=== PATIENT | female | born 1950 | race Caucasian/White ===

== ENCOUNTER 2017-04-05 11:10 | Emergency (ER) | payer OTHER, BC ==
[2017-04-05] MEDS ORDERED: KETOROLAC TROMETHAMINE 60 MG/2 ML VIAL IM ONE (11:25)
--- NOTE | 2017-04-05 11:26 | PDOC ---
History of Present Illness - General Chief Complaint: Injury Stated Complaint: FELL, R SHOULDER, ARM, NECK PAIN Time Seen by Provider: 04/05/17 11:21 History Source: Patient Exam Limitations: No Limitations - History of Present Illness Initial Comments: 04/05/17 11:28 66 y/o female know diabetic presents to ER due to a fall in the bathtub this morning. Patient denies LOC. Denies headache, SOB, chest pain. States she felt the bathtub to be a little slippery and fell. Took one ADvil prior to arrival. Right shoulder pain with movement. No back pain or neck pain. Timing/Duration: 1 hour Severity: mild Past History - Past Medical History Allergies/Adverse Reactions: Allergies Allergy/AdvReac Type Severity Reaction Status Date / Time Penicillins Allergy Hives Verified 04/05/17 11:24 Home Medications: Ambulatory Orders Aspirin [ASA -] 81 mg PO DAILY #0 tab.chew 02/25/13 Insulin (Novolog 70/30) [Novolog Mix 70/30 Flexpen -] 10 units SQ BIDAC #0 pen 02/25/13 Levothyroxine [Synthroid -] 50 mcg PO DAILY@0700 #0 tablet 02/25/13 Rosuvastatin [Crestor -] 5 mg PO Q2D@2200 #0 tablet 02/25/13 Amlodipine Bes/Olmesartan Med [Janie 5-20 mg Tablet] 1 each PO DAILY 04/05/17 Ibuprofen [Advil -] 200 mg PO ONCE 04/05/17 Cancer: Yes (bladder) Diabetes: Yes GI Disorders: Yes (diverticulitis, PANCREATITIS X2) HTN: Yes Hypercholesterolemia: Yes Thyroid Disease: Yes (hypo) - Surgical History Abdominal Surgery: Yes (plasty, ruptured diaphram, hernia) Appendectomy: Yes Cholecystectomy: Yes - Suicide/Smoking/Psychosocial Hx Smoking Status: No Smoking History: Former smoker Have you smoked in the past 12 months: No Number of Cigarettes Smoked Daily: 0 If you are a former smoker, when did you quit?: 30 YRS AGO Hx Alcohol Use: No Substance Use Type: Alcohol Review of Systems - Review of Systems Able to Perform ROS?: Yes Is the patient limited Urdu proficient: No Constitutional: No: Chills, Fever Respiratory: No: Cough, Shortness of Breath Cardiac (ROS): No: Chest Pain ABD/GI: No: Nausea, Vomiting Musculoskeletal: Yes: Joint Pain. No: Back Pain, Neck Pain All Other Systems: Reviewed and Negative *Physical Exam - Physical Exam General Appearance: Yes: Nourished, Appropriately Dressed. No: Apparent Distress HEENT: positive: EOMI, SAHARA, Normal ENT Inspection, Normal Voice, Symmetrical, Pharynx Normal Neck: positive: Trachea midline, Normal Thyroid, Supple, Other (no spinous process tenderness to neck noted, full ROM). negative: Tender, Rigid, Carotid bruit Respiratory/Chest: positive: Lungs Clear, Normal Breath Sounds. negative: Chest Tender, Respiratory Distress Cardiovascular: positive: Regular Rhythm, Regular Rate, S1, S2. negative: Edema , JVD, Murmur Vascular Pulses: Femoral (R): 4+, Femoral (L): 4+, Carotid (R): 4+, Carotid (L) : 4+, Dorsalis-Pedis (R): 4+, Doralis-Pedis (L): 4+ Gastrointestinal/Abdominal: positive: Normal Bowel Sounds, Flat, Soft. negative : Tender, Organomegaly, Pulsatile Mass Lymphatic: negative: Adenopathy, Tenderness, Other Musculoskeletal: positive: Normal Inspection. negative: CVA Tenderness Extremity: positive: Normal Capillary Refill, Normal Inspection. negative: Normal Range of Motion (decreased ROM of right shoulder, no clavicle or scapular tenderness, pulses 2+/4 b/l in UE, no focal deficits noted, tenderness to right shoulder/humerus area, no deformity noted) Integumentary: positive: Normal Color, Dry, Warm. negative: Rash, Swelling, Ecchymosis, Bruising (d) Neurologic: positive: pack operator II-XII NML intact, Fully Oriented, Alert, Normal Mood/ Affect, Normal Response, Motor Strength 5/5 ED Treatment Course - ADDITIONAL ORDERS Additional order review: 04/05/17 11:30 Pt with right shoulder pain, will obtain x-ray to r/o fracture. 04/05/17 12:00 x-ray right shoulder and humerus: humeral head fracture, no dislocation noted Will place in sling, pt will follow up with Orthopedics Dr. Nice If worsen return to ER *DC/Admit/Observation/Transfer Diagnosis at time of Disposition: Fracture of humeral head, right, closed Qualifiers: Encounter type: initial encounter Qualified Code(s): S42.291A - Other displaced fracture of upper end of right humerus, initial encounter for closed fracture - Discharge Dispostion Disposition: HOME Condition at time of disposition: Good Admit: No - Referrals Referrals: Cosmo Mendez MD [Primary Care Provider] - Cosmo Nice MD [Staff Physician] - - Patient Instructions Printed Discharge Instructions: DI for Humeral Fracture Additional Instructions: Ice, Motrin, rest Sling Follow up with Orthopedics Dr. Nice If worsen return to ER - Post Discharge Activity
[2017-04-05 11:32] VITALS: BP 108/60; PULSE 77; TEMP 98.6; BMI 32.8
[2017-04-05] MEDS ORDERED: KETOROLAC TROMETHAMINE 60 MG/2 ML VIAL ONE (11:33)
== END 2017-04-05 12:09 | disposition home or self-care (01) ==
LOC: FER 11:10
PROC: 3E0233Z Introduction of Anti-inflammatory into Muscle, Percutaneous Approach (ICD-10-PCS; principal; 2017-04-05)
DX: S42.291A Other displaced fracture of upper end of right humerus, initial encounter for closed fracture (principal); W18.39XA Other fall on same level, initial encounter; Y93.89 Activity, other specified; Y92.9 Unspecified place or not applicable; E11.9 Type 2 diabetes mellitus without complications; Z85.51 Personal history of malignant neoplasm of bladder; I10 Essential (primary) hypertension; E78.00 Pure hypercholesterolemia, unspecified; E03.9 Hypothyroidism, unspecified; Z87.891 Personal history of nicotine dependence
CPT/HCPCS: 73030-TC-RT-FY; 73060-TC-RT-FY; 99282-25

== ENCOUNTER 2020-07-12 04:24 | Day surgery (SDC) | payer OTHER, BC ==
[2020-07-02 15:35] VITALS: BMI 29.8
[2020-07-12] MEDS ORDERED: LIDOCAINE HCL/PF 2% SDV 5ML VIAL ONE (08:39)
[2020-07-12] MEDS ORDERED: PROPOFOL 20 ML ONE ×2 (08:39→08:42)
[2020-07-12] MEDS ORDERED: MIDAZOLAM HCL 2 MG/2 ML SINGLE DOSE VIAL ONE ×2 (08:40→08:44)
[2020-07-12] MEDS ORDERED: LIDOCAINE HCL 1%, 10 MG/ML (20ML VIAL) ONE (09:10)
[2020-07-12] MEDS ORDERED: BUPIVACAINE HCL/PF 0.5% (5MG/ML) 10 ML VIAL ONE (09:10)
[2020-07-12] MEDS ORDERED: BUPIVACAINE HCL/PF 0.5% (5 MG/ML) 30 ML VIAL IJ ONE ×3 (10:23→11:23)
[2020-07-12] MEDS ORDERED: LIDOCAINE HCL 1%, 10 MG/ML (20ML VIAL) NR ONE ×3 (10:24→11:23)
[2020-07-12] MEDS ORDERED: ceFAZolin SODIUM 1 GM VIAL ONE (11:07)
[2020-07-12] MEDS ORDERED: oxyCODONE HCL 5 MG TABLET PO PRN ×2 (11:21)
[2020-07-12] MEDS ORDERED: ONDANSETRON 4 MG/2 ML VIAL IVPUSH PRN (11:21)
[2020-07-12] MEDS ORDERED: DEXAMETHASONE SOD PHOSPHATE 4 MG/1 ML VIAL ONE (11:29)
[2020-07-12] MEDS ORDERED: KETOROLAC TROMETHAMINE 30 MG/1 ML VIAL ONE (11:29)
[2020-07-12] MEDS ORDERED: LACTATED RINGERS SOLUTION 1,000 ML IV SCH (11:30)
[2020-07-12 14:58] VITALS: BP 115/63; PULSE 63; TEMP 97.4
== END 2020-07-12 14:45 | disposition home or self-care (01) ==
LOC: JASU-SURG 04:24
PROVIDERS: ATTEND Orthopaedic Surgery
PROC: 0PBV0ZZ Excision of Left Finger Phalanx, Open Approach (ICD-10-PCS; 2020-07-12)
PROC: 0LB80ZZ Excision of Left Hand Tendon, Open Approach (ICD-10-PCS; principal; 2020-07-12 10:30)
DX: M67.48 Ganglion, other site (principal); M25.742 Osteophyte, left hand; I10 Essential (primary) hypertension; E11.9 Type 2 diabetes mellitus without complications
CPT/HCPCS: 82962; 88304-TC